=== PATIENT | female | born 1985 | race Asian ===

== ENCOUNTER → 2020-09-20 15:41 | Outpatient (BNVA) | payer OTHER, SELFPAY | PROVIDERS: PCP Dermatology; Visit Provider Obstetrics & Gynecology | DX: N87.0 Mild cervical dysplasia (principal) | CPT/HCPCS: 88175 ==

== ENCOUNTER 2021-04-07 13:39 | Emergency (ER) | payer OTHER, SELFPAY ==
[2021-04-07 14:14] VITALS: BP 97/63; PULSE 69; RESP 18; TEMP 36.8; O2SAT 98; BMI 16.5
[2021-04-07 14:30] VITALS: BP 97/63; PULSE 69; RESP 14
--- NOTE | 2021-04-07 14:30 | W.ED.HA ---
HPI - Headache General: Chief Complaint: Headache Stated Complaint: H/A, EYE PAIN Time Seen by Provider: 04/07/21 14:23 History of Present Illness: HPI Narrative: Patient states that she gets a headache usually with her monthly cycle. She has had this headache for couple weeks light and sound are bothering her eyes and her head. 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 Has felt nauseous to deny any other problems. MD elicited complaint: headache Onset (ago): week(s) Onset description: gradually Location: frontal Severity: mild Quality & Timing: throbbing and squeezing Associated symptoms: Reports nausea and photophobia; Deny chest pain, fever(s), rash or vomiting Treatments prior to arrival: ibuprofen Review of Systems Narrative: Had to use a phone mask inspector to help with our translation of her language Const: Denies: fever(s), chills or body aches Eyes: Denies: change in vision or blurry vision ENMT: Denies: throat pain or nasal congestion Card: Denies: chest pain or dyspnea on exertion Resp: Denies: dyspnea, productive cough or non-productive cough GI: Reports: nausea; Denies: abdominal pain or vomiting Musc: Denies: extremity pain Skin/Breast: Denies: rash Neuro: Reports: headache(s) and other (Photophobia) Psych: Denies: anxiety or depression Lucien/Lymph: Denies: easy bruising PFSH ED PFSH: Medical History No pertinent past medical history Denies diabetes, asthma, hypertension, seizures, DVT/PE PCP: JANNET Mcdermott Surgical History S/P appendectomy Open procedure (right lower quadrant incision) done at age 17 in [place] Family History Denies family history of Colon cancer Ovarian cancer Diabetes Heart disease Hyperlipidemia Breast cancer Hypertension Uterine cancer Thyroid condition Stroke Physical Exam Const: COMMON NORMALS: no acute distress, average body habitus and patient oriented x3 HENMT: COMMON NORMALS: normocephalic HEAD & SCALP: normal to inspection and normocephalic FACE & SINUS: normal facial exam Eye: COMMON NORMALS: Equal, round and reactive pupils present and conjunctivae normal GENERAL EYE: appearance normal, both eyes and all related structures CONJUNCTIVA: Yes conjunctivae normal PUPIL: Yes Equal, round and reactive pupils present DIRECT OPHTHALMOSCOPY: Yes photophobia Neck/C-Spine: COMMON NORMALS: no JVD Chest: COMMONS NORMALS: normal inspection of the chest Resp: COMMON NORMALS: normal respiratory effort and clear to auscultation bilaterally AUSCULTATION: clear to auscultation bilaterally Cardio: COMMON NORMALS: no JVD, regular rate and regular rhythm RATE: regular rate RHYTHM: regular rhythm GI: COMMON NORMALS: Normal to inspection, nondistended, normoactive bowel sounds present Extremity: COMMON NORMALS: normal to inspection and full ROM Neuro: COMMON NORMALS: patient oriented x3, moves all extremities and no focal motor deficits Psych: COMMON NORMALS: mental status grossly normal Course Vital Signs: Vital signs: Vital Signs Temperature 98.2 F 04/07/21 14:14 Pulse Rate 69 04/07/21 14:30 Respiratory Rate 14 04/07/21 14:30 Blood Pressure 97/63 04/07/21 14:30 Pulse Oximetry 98 04/07/21 14:14 MDM - Headache MDM Narrative: Medical decision making narrative: Patient responded well to Imitrex. Patient possibly has tension headaches are migraine. Patient is follow-up primary care provider. Discharge Plan Discharge Patient Disposition: Home Clinical Impression: Migraine Qualifiers: Migraine type: without aura Status migrainosus presence: without status migrainosus Intractability: intractable Qualified Code(s): G43.019 - Migraine without aura, intractable, without status migrainosus Condition: Stable Prescriptions: New Fioricet 50-300-40 mg capsule 1 cap PO TID PRN (Reason: pain) Qty: 14 RF: 0 No Action No Known Home Medications RF: 0 Discharge Orders: Discharge ED (Routine); Ordered 04/07/21 Ordered By: Tad Iverson Discharge Diet: Usual diet Discharge Activity: Resume usual activity Patient Instructions: Headache - Migraine (Adult), Tension Headache (ED) Activity Restrictions/Additional Instructions: Follow-up with medical provider as directed. Take medications as prescribed. Return to the ER or your medical provider if condition worsens. Please read and understand discharge instructions. If any questions ask please. Take [id number] naproxen as directed on the label state 3 days prior to the onset of your menstrual cycle and continue with that through your menstrual cycle.. Coding Level of Care Code ED Capsule Filler for [place] Fwd Exam Comprehensive
[2021-04-07] MEDS: SUMAtriptan 6 mg/0.5 mL SDV SUBCUT (14:36)
[2021-04-07] MEDS: ondansetron 4 MG Tablet 8 MG PO (14:37)
== END 2021-04-07 15:32 | disposition home or self-care (01) ==
PROVIDERS: Emergency Provider Nurse Practitioner Family
DX: G43.019 Migraine without aura, intractable, without status migrainosus (principal)
CPT/HCPCS: 96372; 99283; J3030; Q0162

== ENCOUNTER 2021-06-21 20:07 | Emergency (ER) | payer OTHER, SELFPAY ==
[2021-06-21 20:12] VITALS: BP 105/70; PULSE 74; RESP 18; TEMP 36.4; O2SAT 98; BMI 16.8
--- NOTE | 2021-06-21 20:26 | XRR_ITS ---
PROCEDURE INFORMATION: Exam: XR Chest Exam date and time: 06/21/2021 8:26 PM Age: 35 years old Clinical indication: Cough TECHNIQUE: Imaging protocol: XR of the chest. Views: 1 view. COMPARISON: CT abdomen pelvis w con* [id number] 07/22/2019 9:47 AM FINDINGS: Lungs: Unremarkable. No consolidation. Pleural spaces: Unremarkable. No pleural effusion. No pneumothorax. Heart/Mediastinum: Unremarkable. No cardiomegaly. Bones/joints: Mild rightward thoracic curvature. XR/XR chest 1V portable [id number] IMPRESSION: No acute finding. Radiation Dose CTDIVOL = (mGy): DLP = (mGy-cm)
[2021-06-21 20:30] VITALS: O2SAT 98
--- NOTE | 2021-06-21 20:41 | W.ED.COVID ---
HPI - COVID General: Chief Complaint: COVID symptoms Stated Complaint: Throat hurts\Chest Hurts\Congestion Time Seen by Provider: 06/21/21 20:11 Source: patient Mode of arrival: ambulatory Limitations: no limitations Triage information: Has fever, cough or shortness of breath. No known COVID + exposure last 14 days History of Present Illness: HPI Narrative: 35-year-old female states that over the last 2 to 3 days she had cough congestion burning in her chest and a sore throat. States cough is dry in nature she denies any vomiting or diarrhea. 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 She is afebrile here she is not requiring any oxygen. COVID 19 common symptoms: positive chills, non-productive cough and nasal congestion; negative headache(s), nausea, vomiting or diarrhea COVID 19 other sytmptoms: negative chest pain COVID Results: SARS-CoV-2 Antigen (Rapid) Positive (Negative) H 06/21/21 20:30 06/21/21 Review of Systems Const: Reports: chills Eyes: Denies: blurry vision or eye discomfort ENMT: Reports: nasal congestion Card: Denies: chest pain Resp: Reports: non-productive cough GI: Denies: abdominal pain, nausea, vomiting or diarrhea : Denies: dysuria Musc: Denies: neck pain or back pain Skin/Breast: Denies: rash Neuro: Denies: headache(s) Psych: Denies: depression Lucien/Lymph: Denies: easy bruising All/Imm: Denies: urticaria PFSH ED PFSH: Medical History No pertinent past medical history Denies diabetes, asthma, hypertension, seizures, DVT/PE PCP: JANNET Mcdermott Surgical History S/P appendectomy Open procedure (right lower quadrant incision) done at age 17 in [place] Family History Denies family history of Colon cancer Ovarian cancer Diabetes Heart disease Hyperlipidemia Breast cancer Hypertension Uterine cancer Thyroid condition Stroke Physical Exam Const: COMMON NORMALS: no acute distress, patient oriented x3 and healthy appearing HENMT: COMMON NORMALS: normocephalic and atraumatic HEAD & SCALP: normocephalic and atraumatic Eye: COMMON NORMALS: Equal, round and reactive pupils present and EOMs intact bilaterally PUPIL: Yes Equal, round and reactive pupils present Neck/C-Spine: COMMON NORMALS: full ROM and supple Chest: COMMONS NORMALS: normal inspection of the chest and normal palpation of entire chest wall Resp: COMMON NORMALS: normal respiratory effort, No retractions, No use of accessory muscles and clear to auscultation bilaterally AUSCULTATION: clear to auscultation bilaterally Cardio: COMMON NORMALS: regular rate, regular rhythm and No murmurs present (Cardio) RATE: regular rate RHYTHM: regular rhythm GI: COMMON NORMALS: Normal to inspection, nondistended, normoactive bowel sounds present, Soft to palpation, non-tender and no masses PALPATION: Yes Soft to palpation Extremity: COMMON NORMALS: normal to inspection and full ROM Neuro: COMMON NORMALS: patient oriented x3, moves all extremities and no focal motor deficits Psych: COMMON NORMALS: mental status grossly normal, Normal thought process present and cooperative THOUGHT PROCESS: Normal thought process present Skin: COMMON NORMALS: no rashes or lesions noted and no wounds GENERAL SKIN EXAM: no rashes or lesions noted Course Vital Signs: Vital signs: Vital Signs Temperature 97.5 F L 06/21/21 20:12 Pulse Rate 74 06/21/21 20:12 Respiratory Rate 18 06/21/21 20:12 Blood Pressure 105/70 06/21/21 20:12 Pulse Oximetry 98 06/21/21 20:30 MDM - COVID MDM Narrative: Medical decision making narrative: Patient presents here with Covid she is well-appearing here she is healthy she has no signs of serious infection she is on day 3 of symptoms I informed her she needs to quarantine for 7 more days. Patient is stable for discharge to return if worsening. Lab Data: Labs: Lab Results 06/21/21 06/21/21 20:30 20:30 SARS-CoV-2 Ag (Rap id) Positive H (Negative) Group A Strep Rapi d Negative (Negative) Imaging Data: CXR: Attestation: I personally reviewed and interpreted this imaging study as follows: My impression: no acute abnormality COVID Results: SARS-CoV-2 Antigen (Rapid) Positive (Negative) H 06/21/21 20:30 06/21/21 Discharge Plan Discharge Patient Disposition: Home Clinical Impression: COVID-19 Condition: Stable Prescriptions: New albuterol sulfate 90 mcg/actuation HFA aerosol inhaler 2 inh INHALATION Q6H PRN (Reason: shortness of breath or wheezing) Qty: 8 RF: 0 No Action Fioricet 50-300-40 mg capsule 1 cap PO TID PRN (Reason: pain) Qty: 14 RF: 0 Discharge Orders: Discharge ED (Routine); Ordered 06/21/21 Ordered By: Lucho Roberson Discharge Diet: Advance as tolerated Discharge Activity: Resume usual activity Patient Instructions: How to Recover from COVID-19 at Home (ED), Social Distancing Guidelines for COVID-19 (ED) Coding Level of Care Code ED Administrator Pesticide for [place] Fwd Exam Comprehensive
[2021-06-21 20:50] LABS: Rapid Strep A Test Negative (Negative)
[2021-06-21 21:02] LABS: SARS Covid-2 Antigen Positive (Negative)
[2021-06-21] MEDS: albuterol 8 gm MDI 2 PUFF INHALATION (21:45)
== END 2021-06-21 21:53 | disposition home or self-care (01) ==
PROVIDERS: Emergency Provider Emergency Medicine
DX: U07.1 COVID-19 (principal)
CPT/HCPCS: 71045; 87081; 87426; 87880; 94640; 99283; J3535

== ENCOUNTER 2021-08-17 14:04 | Emergency (ER) | payer SELFPAY ==
[2021-08-17 14:16] VITALS: BP 92/56; PULSE 82; RESP 16; TEMP 36.7; O2SAT 99; BMI 19.2
--- NOTE | 2021-08-17 17:36 | CTR_ITS ---
PROCEDURE INFORMATION: Exam: CT Lumbar Spine Without Contrast Exam date and time: 08/17/2021 5:36 PM Age: 35 years old Clinical indication: Low back pain; Patient HX: Lbp w ble radiculopathy w/o specific injury; Additional info: Lumbar radiculopathy TECHNIQUE: Imaging protocol: Computed tomography images of the lumbar spine without contrast. Radiation optimization: All CT scans at this facility use at least one of these dose optimization techniques: automated exposure control; mA and/or kV adjustment per patient size (includes targeted exams where dose is matched to clinical indication); or iterative reconstruction. COMPARISON: [facility] Lumbar Spine 2-3 views 03/17/2018 2:44 PM RADIATION DOSE METRICS: Total DLP (mGy-cm): 798.24 FINDINGS: Vertebrae: No acute fracture. Normal alignment. Discs/Spinal canal/Neural foramina: Disc protrusion at L4-L5 and L5-S1. No severe spinal canal stenosis. No significant neural foraminal narrowing. Soft tissues: Unremarkable. CT/CT lumbar spine wo con* [id number] IMPRESSION: No acute findings. Disc protrusion at L4-L5 and L5-S1.
--- NOTE | 2021-08-17 18:06 | ED_ITS ---
Documented by User: EDGARDO Mendoza 08/17/21 19:24 HPI - Back Pain/Injury General: Chief Complaint: Back Pain/Injury Stated Complaint: lower back pain Time Seen by Provider: 08/17/21 18:06 History of Present Illness: HPI Narrative: 35-year-old female comes in today with complaints of low back pain. Patient reports history of back pain in which she has used meloxicam with good relief. For the last 3 days patient's had wo rse back pain which is made it difficult for her to walk and ambulate. Patient continues to work but has significant discomfort. Patient denies any problems with urination or bowel movements. Location: lumbar spine Radiation: left upper leg and right upper leg Exacerbating factors: walking Relieving factors: supine Associated symptoms: Reports difficulty walking and tingling/numbness/burning; Deny change in bowel habits or fever(s) Review of Systems Const: Denies: fever(s) GI: Denies: change in bowel habits Musc: Reports: back pain Neuro: Reports: difficulty walking PFSH ED PFSH: Medical History No pertinent past medical history Denies diabetes, asthma, hypertension, seizures, DVT/PE PCP: JANNET Mcdermott Surgical History S/P appendectomy Open procedure (right lower quadrant incision) done at age 17 in [place] Family History Denies family history of Colon cancer Ovarian cancer Diabetes Heart disease Hyperlipidemia Breast cancer Hypertension Uterine cancer Thyroid condition Stroke Physical Exam Const: COMMON NORMALS: healthy appearing EXAM LIMITATIONS: language barrier (Mandrin is patient's primary language) NUTRITIONAL APPEARANCE: thin HENMT: COMMON NORMALS: normocephalic HEAD & SCALP: normocephalic Neck/C-Spine: COMMON NORMALS: full ROM Resp: COMMON NORMALS: normal respiratory effort and clear to auscultation bilaterally AUSCULTATION: clear to auscultation bilaterally Cardio: COMMON NORMALS: regular rate and regular rhythm RATE: regular rate RHYTHM: regular rhythm Course Vital Signs: Vital signs: Vital Signs Temperature 98.1 F 08/17/21 14:16 Pulse Rate 82 08/17/21 14:16 Respiratory Rate 16 01/21/22 19:10 Blood Pressure 92/56 08/17/21 14:16 Pulse Oximetry 99 08/17/21 14:16 MDM - Back Pain/Injury MDM Narrative: Medical decision making narrative: Patient comes in today with complaints of low back pain. Patient had 1 previous episode of similar pain about 2 years ago. Patient tried some meloxicam that she had had from that prescription with minimal to no relief. Patient reports increased difficulty of walking due to pain. Patient denied any bowel or bladder concerns. Patient denies any fever. On exam patient had tenderness in the lumbar L5-S1 area. Positive leg lift test on the right. Vital signs are normal. Differential diagnosis includes but not limited to lumbar radiculopathy, lumbar sprain, intervertebral disc disease, facet arthropathy. CT of the lumbar spine indicated some mild bulging disc at L4-L5, and L5-S1 without significant foraminal encroachment. Reviewed exam with patient with recommendations for treatment with medication and follow-up with primary care for physical therapy. Patient reports understanding of care plan and need for follow-up. Discharge Plan Discharge Patient Disposition: Home Clinical Impression: Lumbar radiculopathy Condition: Stable Prescriptions: New prednisone 20 mg tablet 20 mg PO BID 5 Days Qty: 10 RF: 0 diclofenac sodium 75 mg tablet,delayed release (DR/EC) 75 mg PO BID Qty: 14 RF: 0 hydrocodone-acetaminophen 5-325 mg tablet 1 tab PO Q8H PRN (Reason: pain (scale score 7-10)) Qty: 10 RF: 0 No Action Fioricet 50-300-40 mg capsule 1 cap PO TID PRN (Reason: pain) Qty: 14 RF: 0 albuterol sulfate 90 mcg/actuation HFA aerosol inhaler 2 inh INHALATION Q6H PRN (Reason: shortness of breath or wheezing) Qty: 8 RF: 0 Discharge Orders: Discharge ED (Routine); Ordered 08/17/21 Ordered By: Syed Jalloh Discharge Diet: Usual diet Discharge Activity: Increase activity as tolerated Patient Instructions: Lumbar Radiculopathy (ED), Opioid Safety Activity Restrictions/Additional Instructions: Maintain activity as much as possible. Drink plenty of water with medication. Stop meloxicam. Use diclofenac 75 mg twice a day for pain and inflammation. Use prednisone 20 mg daily for inflammation. Use hydrocodone and acetaminophen for further pain relief. Follow-up with primary care in 3 days for recheck. Return to ER for new concerns. Coding Level of Care Code ED Machine Overhauler for Chg Fwd Exam Detailed Documented by User: Kaerl Blas DO 08/17/21 19:25 HPI - Back Pain/Injury General: Chief Complaint: Back Pain/Injury Stated Complaint: lower back pain Time Seen by Provider: 08/17/21 18:06 [facility] ED PFSH: Medical History No pertinent past medical history Denies diabetes, asthma, hypertension, seizures, DVT/PE PCP: JANNET Mcdermott Surgical History S/P appendectomy Open procedure (right lower quadrant incision) done at age 17 in [place] Family History Denies family history of Colon cancer Ovarian cancer Diabetes Heart disease Hyperlipidemia Breast cancer Hypertension Uterine cancer Thyroid condition Stroke Course Vital Signs: Vital signs: Vital Signs Temperature 98.1 F 08/17/21 14:16 Pulse Rate 82 08/17/21 14:16 Respiratory Rate 16 08/17/21 19:10 Blood Pressure 92/56 08/17/21 14:16 Pulse Oximetry 99 08/17/21 14:16 MDM - Back Pain/Injury MDM Narrative: Medical decision making narrative: This patient was originally seen by EDGARDO Hernandez. I agree with his history, evaluation, and treatment. Discharge Plan Discharge Patient Disposition: Home Clinical Impression: Lumbar radiculopathy Condition: Stable Prescriptions: New prednisone 20 mg tablet 20 mg PO BID 5 Days Qty: 10 RF: 0 diclofenac sodium 75 mg tablet,delayed release (DR/EC) 75 mg PO BID Qty: 14 RF: 0 hydrocodone-acetaminophen 5-325 mg tablet 1 tab PO Q8H PRN (Reason: pain (scale score 7-10)) Qty: 10 RF: 0 No Action Fioricet 50-300-40 mg capsule 1 cap PO TID PRN (Reason: pain) Qty: 14 RF: 0 albuterol sulfate 90 mcg/actuation HFA aerosol inhaler 2 inh INHALATION Q6H PRN (Reason: shortness of breath or wheezing) Qty: 8 RF: 0 Discharge Orders: Discharge ED (Routine); Ordered 08/17/21 Ordered By: Syed Jalloh Discharge Diet: Usual diet Discharge Activity: Increase activity as tolerated Patient Instructions: Lumbar Radiculopathy (ED), Opioid Safety Activity Restrictions/Additional Instructions: Maintain activity as much as possible. Drink plenty of water with medication. Stop meloxicam. Use diclofenac 75 mg twice a day for pain and inflammation. Use prednisone 20 mg daily for inflammation. Use hydrocodone and acetaminophen for further pain relief. Follow-up with primary care in 3 days for recheck. Return to ER for new concerns. Coding Level of Care Code ED Machine Overhauler for [place] Fwd Exam Detailed
[2021-08-17] MEDS: ketorolac 30 mg/mL INJ IM (18:45)
[2021-08-17] MEDS: dexamethasone 10 mg/mL INJ IM (18:45)
[2021-08-17 19:10] VITALS: RESP 16
== END 2021-08-17 19:10 | disposition home or self-care (01) ==
PROVIDERS: Emergency Provider Nurse Practitioner Family
DX: M54.16 Radiculopathy, lumbar region (principal)
CPT/HCPCS: 72131; 96372; 99283; J1100; J1885

== ENCOUNTER → 2022-03-06 14:35 | Outpatient (BNVA) | payer OTHER, SELFPAY | PROVIDERS: Visit Provider Nurse Practitioner Women's Health | DX: Z01.419 Encounter for gynecological examination (general) (routine) without abnormal findings (principal); N87.0 Mild cervical dysplasia; N84.1 Polyp of cervix uteri; N63.0 Unspecified lump in unspecified breast; Z01.411 Encounter for gynecological examination (general) (routine) with abnormal findings | CPT/HCPCS: 87624; 88305 ==

== ENCOUNTER 2022-03-27 10:43 | Outpatient (CLI) | payer OTHER, SELFPAY ==
--- NOTE | 2022-03-27 10:51 | MM_ITS ---
WS: [id number] DIAGNOSTIC BILATERAL DIGITAL BREAST TOMOSYNTHESIS MAMMOGRAPHY WITH CAD Bilateral breast ultrasound, limited HISTORY: Palpable areas bilaterally. COMPARISON: 09/03/2018 TECHNIQUE: Bilateral craniocaudad, mediolateral oblique, and mediolateral views are submitted with to mosynthesis and SM. Spot compression bilateral CC views. Computer aided detection utilized. Breast composition: The breasts are extremely dense, which lowers the sensitivity of mammography. Tri angular markers are placed along the upper aspect of each breast. Bilateral palpable markers. Breasts are very dense. No suspicious mass or calcification. No distortion. Similar pattern to the pr ior examination. Bilateral breast ultrasound, limited. RIGHT breast: Very dense fibroglandular tissue in the RIGHT breast. There are several hypoechoic nodu les at 2:00. Ovoid hypoechoic nodule measures 1.1 x 0.5 x 1.3 cm at 2:00, 2 cm from the nipple. This is probably benign and may be a fibroadenoma. There are additional small complex cyst at 10:00, 3 cm from the nipple with the largest cluster measuring 0.6 x 0.7 x 0.5 cm. LEFT breast: Extremely dense fibroglandular density. No abnormality is noted at 2 or 10:00. MM/[place] [id number] IMPRESSION: BI-RADS: 3-Probably Benign FOLLOW UP: 6 Month Follow-up Recommend ultrasound follow-up RIGHT breast in 6 months. Favor these findings a re probably benign. Complex cyst and possible fibroadenoma. Ultrasound follow-u p recommended at 2:00 and 10:00.
== END 2022-03-27 10:44 | disposition home or self-care (01) ==
PROVIDERS: Visit Provider Nurse Practitioner Women's Health
DX: N63.11 Unspecified lump in the right breast, upper outer quadrant (principal); N63.21 Unspecified lump in the left breast, upper outer quadrant; N63.22 Unspecified lump in the left breast, upper inner quadrant
CPT/HCPCS: 76642; 77062

== ENCOUNTER 2022-09-17 08:16 | Outpatient (CLI) | payer OTHER, SELFPAY ==
--- NOTE | 2022-09-17 08:49 | US_ITS ---
WS: [id number] ULTRASOUND RIGHT BREAST, limited HISTORY: 6 month follow-up. COMPARISON: 03/27/2022 TECHNIQUE: 2-D and Doppler. Very dense fibroglandular breast tissue. Previously described hypoechoic nodule 2:00, 2 cm from nippl e measures 12 x 4 x 13 mm and is unchanged. Benign in appearance. There is a small complex cyst at 10 :00, 3 cm from the nipple measuring 4 x 6 x 6 mm which has slightly decreased in size. No increased v ascularity. Very dense fibroglandular tissue at 12:00. US/US breast RT complete [id number] IMPRESSION: BI-RADS: 3-Probably Benign FOLLOW-UP: 1 Year Follow-up Recommend limited RIGHT breast follow-up ultrasound in one year.
== END 2022-09-17 08:17 | disposition home or self-care (01) ==
PROVIDERS: PCP Surgery; Visit Provider Surgery
DX: N63.10 Unspecified lump in the right breast, unspecified quadrant (principal)
CPT/HCPCS: 76641

== ENCOUNTER 2022-10-28 08:13 | Outpatient (CLI) | payer OTHER, SELFPAY ==
--- NOTE | 2022-10-28 08:15 | US_ITS ---
WS: [id number] RIGHT UPPER QUADRANT ULTRASOUND HISTORY: abd pain COMPARISON: None available. Liver: 11.4 cm in length. Normal size liver and echogenicity. No bile duct dilatation or mass. Portal Vein: Normal hepatopetal flow with monophasic waveform. Gallbladder: Normally distended gallbladder with no stones or wall thickening. CBD: 0.3 cm Pancreas: Normal size and echogenicity. Right kidney: 9.4 cm in length. Normal size and echogenicity. No hydronephrosis or mass. Aorta and IVC: Unremarkable abdominal aorta and IVC. No ascites. US/US gall bladder [id number] IMPRESSION: Normal RIGHT upper quadrant ultrasound.
== END 2022-10-28 08:14 | disposition home or self-care (01) ==
LOC: RAD 08:15
PROVIDERS: PCP Internal Medicine; Visit Provider Surgery
DX: R10.9 Unspecified abdominal pain (principal)
CPT/HCPCS: 76705

== ENCOUNTER 2022-10-30 08:50 | Day surgery (SDC) | payer OTHER, SELFPAY ==
[2022-10-28 10:02] VITALS: BMI 17.4
[2022-10-30 09:20] VITALS: BP 103/60; PULSE 72; RESP 16; TEMP 36.3; O2SAT 99
[2022-10-30] MEDS: sodium chloride 0.9% 1,000 ML 30 ML IV (09:27)
--- NOTE | 2022-10-30 09:38 | ANES.PREANE2 ---
Pre-Anesthetic Assessment Height/Weight: Height 1.57 m Weight 43.091 kg Preop Diagnosis: GERD Operation Date: 10/30/22 10:15 Proposed Procedures p [id number] EGD R10.13(Not Applicable) - Octavio Beatty DO Familial anesthetic complications: none Was Beta Jaswant taken within 24 hours: N/A Was Clonidine taken within 24 hours: N/A Last intake: Intake Last Liquid Date 10/29/22 Last Liquid Time 20:00 Last Solid Date 10/29/22 Last Solid Time 20:00 Last Intake: 20:00 Social No alcohol and No tobacco Exam alert, oriented x 3, clear to auscultation bilaterally and regular rate & rhythm Airway Submandibular: within normal limits Cervical ROM: within normal limits Mallampati: Class II Dentition: full Pulmonary Asthma CV/HEM None reported None reported Hepatic None reported GI Gastroesophageal Reflux Disease Metabolic None reported Musc/skel Lower Back Pain Neuropsych None reported Anesthetic Plan ASA status: 2 Anesthesia: MAC Medications/Allergies Home Medications Medication Instructions Recorded Confirmed Last Taken Type albuterol sulfate 90 mcg/actuation 2 inh inhalation Q6H PRN shortness 06/21/21 10/30/22 Unknown Rx aerosol inhaler of breath or wheezing #8 grams pantoprazole 40 mg tablet,delayed 40 mg PO BID 6 weeks #84 tabs 09/26/22 10/30/22 Unknown Rx release (Protonix) Allergies Allergy/AdvReac Type Severity Reaction Status Date / Time No Known Allergies Allergy Unverified 10/30/22 09:27 Current Medications Generic Name Dose Route Start Last Admin Trade Name Freq PRN Reason Stop Dose Admin Sodium Chloride 1,000 mls @ 30 mls/hr 10/30/22 09:00 10/30/22 09:27 Sodium Chloride 0.9% IV 10/31/22 08:59 30 mls/hr .Q24H WALDEMAR Administration PFSH Anesthesia Medical History Cervical polyp (~02/2022) benign History of gestational hypertension (~2010) No pertinent past medical history Denies diabetes, asthma, hypertension, seizures, DVT/PE PCP: JANNET Mcdermott Surgical History S/P appendectomy Open procedure (right lower quadrant incision) done at age 17 in [place] Family History Denies family history of Colon cancer Ovarian cancer Diabetes Heart disease Hyperlipidemia Breast cancer Hypertension Uterine cancer Thyroid condition Stroke Social History Smoking and tobacco status: never smoked Data Anesthesia Cardiac Studies: No Data to Display
[2022-10-30 09:39] LABS: OR HCG Qualitative Urine Negative (Negative)
--- NOTE | 2022-10-30 11:02 | P.HP_ITS ---
Providers/Chief Complaint Primary Care Provider: Kaylen Cole MD Chief Complaint: R10.13 History of Present Illness Neena Montgomery is a 36 year old female here for EGD Medications/Allergies Home Medications Medication Instructions Recorded Confirmed Last Taken Type albuterol sulfate 90 mcg/actuation 2 inh inhalation Q6H PRN shortness 06/21/21 10/30/22 Unknown Rx aerosol inhaler of breath or wheezing #8 grams pantoprazole 40 mg tablet,delayed 40 mg PO BID 6 weeks #84 tabs 09/26/22 10/30/22 Unknown Rx release (Protonix) Allergies Allergy/AdvReac Type Severity Reaction Status Date / Time No Known Allergies Allergy Unverified 10/30/22 09:27 PFSH Acute PFSH: Medical History Cervical polyp (~02/2022) benign History of gestational hypertension (~2010) No pertinent past medical history Denies diabetes, asthma, hypertension, seizures, DVT/PE PCP: JANNET Mcdermott Surgical History S/P appendectomy Open procedure (right lower quadrant incision) done at age 17 in [place] Family History Denies family history of Colon cancer Ovarian cancer Diabetes Heart disease Hyperlipidemia Breast cancer Hypertension Uterine cancer Thyroid condition Stroke Social History Smoking and tobacco status: never smoked Vitals/I&O/Wt Last Vital Signs Temp 97.4 F L 10/30/22 09:20 Pulse 72 10/30/22 09:20 Resp 16 10/30/22 09:20 BP 103/60 10/30/22 09:20 Pulse Ox 99 10/30/22 09:20 O2 Del Method 10/30/22 09:20 A&P Assessment and plan (1) GERD (gastroesophageal reflux disease): Plan EGD Attestations Medical Necessity Statement*: Home Coding Level of Care Code Acute Code for Chg Fwd Diagnoses GERD (gastroesophageal reflux disease) K21.9
[2022-10-30 11:16] VITALS: BP 95/60; PULSE 65; RESP 18; TEMP 36.6; O2SAT 100
[2022-10-30 11:21] VITALS: BP 99/58; PULSE 62; RESP 18; O2SAT 100
[2022-10-30 11:31] VITALS: BP 100/67; PULSE 70; RESP 18; O2SAT 100
--- NOTE | 2022-10-30 13:15 | ANE.PACU2 ---
Inpatient post-anesthesia follow up: Airway intact: Yes Vital signs: Temperature 97.8 F Pulse Rate 70 Respiratory Rate 18 Blood Pressure 100/67 Pulse Oximetry 100 Oxygen Delivery Me thod Room Air Oxygen Flow Rate 2 Fraction of Inspir ed Oxygen Hydration adequate: Yes Nausea and vomiting: No Pain level: 1 Mental status: Baseline
== END 2022-10-30 12:05 | disposition home or self-care (01) ==
PROVIDERS: PCP Internal Medicine; Visit Provider Surgery
PROC: 0DJ08ZZ Inspection of Upper Intestinal Tract, Via Natural or Artificial Opening Endoscopic (ICD-10-PCS; CPT 43235; principal; 2022-10-30 10:15)
DX: R10.13 Epigastric pain (principal); K21.9 Gastro-esophageal reflux disease without esophagitis; K29.70 Gastritis, unspecified, without bleeding
CPT/HCPCS: 43239; 81025; 84703; 88305; J2704; J7030

== ENCOUNTER 2022-11-03 22:15 | Emergency (ER) | payer OTHER, SELFPAY ==
[2022-11-03 22:18] VITALS: BP 108/72; PULSE 67; RESP 16; TEMP 36.6; O2SAT 100
--- NOTE | 2022-11-03 22:32 | W.ED.GENADLT ---
HPI - General Adult General: Chief complaint: General Medical Stated complaint: chest pain Time Seen by Provider: 11/03/22 22:27 History of Present Illness: 36-year-old female comes in today with complaints of breast pain and discomfort. Patient reports that her present discomfort and changes in her breast are noted with her periods. Patient appears nontoxic. Patient appears no acute distress. Patient is alert and oriented. Associated symptoms: Deny dyspnea, nausea or vomiting Review of Systems General: Reports: 10 or more systems reviewed and unremarkable except in HPI and below Resp: Denies: dyspnea GI: Denies: nausea or vomiting Musc: Denies: neck pain Skin/Breast: Reports: breast mass Psych: Denies: anxiety PFSH ED PFSH: Medical History Cervical polyp (~02/2022) benign History of gestational hypertension (~2010) No pertinent past medical history Denies diabetes, asthma, hypertension, seizures, DVT/PE PCP: JANNET Mcdermott Surgical History S/P appendectomy Open procedure (right lower quadrant incision) done at age 17 in [place] Family History Denies family history of Colon cancer Ovarian cancer Diabetes Heart disease Hyperlipidemia Breast cancer Hypertension Uterine cancer Thyroid condition Stroke Social History Smoking and tobacco status: never smoked Physical Exam Const: COMMON NORMALS: alert HENMT: COMMON NORMALS: normocephalic HEAD & SCALP: normocephalic Neck/C-Spine: COMMON NORMALS: full ROM Chest: COMMONS NORMALS: normal palpation of the breasts (Dense breast tissue) BREAST/AXILLA PALPATION: Yes normal palpation of the axillae and Yes normal palpation of the breasts (Dense breast tissue) Resp: COMMON NORMALS: normal respiratory effort Cardio: COMMON NORMALS: regular rate RATE: regular rate Extremity: COMMON NORMALS: normal to inspection Neuro: SENSORIUM/ORIENTATION: Yes alert Skin: COMMON NORMALS: turgor normal GENERAL SKIN EXAM: turgor normal Course Vital Signs: Vital signs: Vital Signs Temperature 97.9 F 11/03/22 22:18 Pulse Rate 67 11/03/22 22:18 Respiratory Rate 16 11/03/22 22:18 Blood Pressure 108/72 11/03/22 22:18 Pulse Oximetry 100 11/03/22 22:18 Oxygen Delivery Me thod 11/03/22 22:18 MDM - General Adult Medical Decision Making 36-year-old female comes in today for complaints of tenderness to the right breast with pain in both breasts. Patient states that she noted the symptoms cycle with her period. On exam patient has some dense breast tissue on palpation but no nonmobile masses or dimpling of the skin. Differential diagnosis includes but not limited to fibrocystic breast changes, malingering, muscle strain. Strongly believe patient has fibrocystic breast changes due to her. Barrier to care is due to her [place]ian being a second language. Provided information about fibrocystic breast disease and simplified Syriac writing. Patient reported understanding of care plan and need for follow-up or return to the ER. Discharge Plan Discharge Patient Disposition: Home Clinical Impression: Fibrocystic breast disease (FCBD) in female Qualifiers: Laterality: unspecified laterality Qualified Code(s): N60.19 - Diffuse cystic mastopathy of unspecified breast Condition: Stable Prescriptions: New naproxen 500 mg tablet 500 mg PO BID PRN (Reason: breast pain) Qty: 30 0RF No Action pantoprazole [Protonix] 40 mg tablet,delayed release (DR/EC) 40 mg PO BID 42 Days Qty: 84 1RF albuterol sulfate 90 mcg/actuation HFA aerosol inhaler 2 inh INHALATION Q6H PRN (Reason: shortness of breath or wheezing) Qty: 8 0RF Discharge Orders: Discharge ED (Routine); Ordered 11/03/22 Ordered By: Syed Jalloh Referrals: Kaylen Cole MD [Primary Care Provider] - Patient Instructions: Fibrocystic Breast Changes (ED) Activity Restrictions/Additional Instructions: Follow-up with primary care as directed. Keep appointment in 2 weeks as scheduled. Return to ED for new concerns. Coding Level of Care Code ED [employer] for Carson Guo
[2022-11-03] MEDS: naproxen 500 mg Tablet PO (22:55)
== END 2022-11-03 23:42 | disposition home or self-care (01) ==
PROVIDERS: Emergency Provider Nurse Practitioner Family; PCP Internal Medicine
DX: N60.19 Diffuse cystic mastopathy of unspecified breast (principal)
CPT/HCPCS: 99283

== ENCOUNTER 2022-11-18 07:54 | Outpatient (CLI) | payer OTHER, SELFPAY ==
--- NOTE | 2022-11-18 08:00 | NM_ITS ---
WS: [id number] NUCLEAR MEDICINE HIDA SCAN CLINICAL INFORMATION: abd pain TECHNIQUE: Following intravenous administration of 8.1 mCi of technetium 99m mebrofenin, images of th e abdomen were obtained over the course of 60 minutes. Next, gallbladder ejection fraction was determ ined by obtaining preprandial and one-hour postprandial images of the gallbladder following oral carlos stion of Ensure. COMPARISON: Ultrasound October 28, 2022 FINDINGS: Normal hepatic uptake at 5 minutes. Normal gallbladder visualized by 10 minutes. No evidence of acute cholecystitis. Normal common bile duct and small bowel activity. Normal hepatic excretion. Gallbladder ejection fraction 51% within normal limits. No evidence of chronic cholecystitis. NM/NM hepatobiliary w phar* [id number] IMPRESSION: 1. No evidence of acute or chronic cholecystitis. 2. Gallbladder ejection fraction 51% within normal limits. 3. Normal common bile duct and small bowel activity.
== END 2022-11-18 07:55 | disposition home or self-care (01) ==
PROVIDERS: PCP Internal Medicine; Visit Provider Surgery
DX: R10.13 Epigastric pain (principal)
CPT/HCPCS: 78227; A9537

== ENCOUNTER 2022-12-06 05:49 | Day surgery (SDC) | payer OTHER, SELFPAY ==
[2022-12-04 13:00] VITALS: BMI 16.8
[2022-12-06 06:16] VITALS: BP 100/56; PULSE 79; RESP 16; TEMP 37.1; O2SAT 98
[2022-12-06] MEDS: sodium chloride 0.9% 1,000 ML 30 ML IV (06:21)
--- NOTE | 2022-12-06 07:02 | P.ANESASSM_ITS ---
Pre-Anesthetic Assessment Height/Weight: Height 1.57 m Weight 41.73 kg Temp Pulse Resp BP Pulse Ox O2 Del Method 98.8 F 79 16 100/56 98 Room Air 12/06/22 06:16 12/06/22 06:16 12/06/22 06:16 12/06/22 06:16 12/06/22 06:16 12/06/22 06:16 Operation Date: 12/06/22 07:00 Proposed Procedures p 01101 diagnostic colonoscopy R10.9 ,R19.7(Not Applicable) - Octavio Beatty DO Familial anesthetic complications: none Was Beta Jaswant taken within 24 hours: N/A Was Clonidine taken within 24 hours: N/A Last intake: Intake Last Liquid Date 12/05/22 Last Liquid Time 22:30 Last Solid Date 12/04/22 Last Solid Time 23:00 Last Intake: 20:00 Social No alcohol and No tobacco Exam alert and oriented x 3 Airway Submandibular: within normal limits Cervical ROM: within normal limits Mallampati: Class II Dentition: full History/ROS No significant history except as noted Pulmonary Asthma CV/HEM None reported None reported Hepatic None reported GI Gastroesophageal Reflux Disease Metabolic None reported Musc/skel None reported Neuropsych None reported Anesthetic Plan ASA status: 2 Risk of > 500 ml blood loss (7ml/kg in children): No Medications/Allergies Home Medications Medication Instructions Recorded Confirmed Last Taken Type albuterol sulfate 90 mcg/actuation 2 inh inhalation Q6H PRN shortness 06/21/21 12/06/22 12/04/22 Rx aerosol inhaler of breath or wheezing #8 grams dicyclomine 20 mg tablet 40 mg PO QID 3 months #720 tabs 11/28/22 12/06/22 12/04/22 Rx Allergies Allergy/AdvReac Type Severity Reaction Status Date / Time No Known Allergies Allergy Unverified 12/04/22 12:57 Current Medications Generic Name Dose Route Start Last Admin Trade Name Freq PRN Reason Stop Dose Admin Sodium Chloride 1,000 mls @ 30 mls/hr 12/06/22 06:00 12/06/22 06:21 Sodium Chloride 0.9% IV 12/07/22 05:59 30 mls/hr .Q24H WALDEMAR Administration PFSH Anesthesia Medical History Cervical polyp (~02/2022) benign History of gestational hypertension (~2010) No pertinent past medical history Denies diabetes, asthma, hypertension, seizures, DVT/PE PCP: JANNET Mcdermott Surgical History S/P appendectomy Open procedure (right lower quadrant incision) done at age 17 in [place] Family History Denies family history of Colon cancer Ovarian cancer Diabetes Heart disease Hyperlipidemia Breast cancer Hypertension Uterine cancer Thyroid condition Stroke Social History Smoking and tobacco status: never smoked Female Reproductive History Date of last menstrual period: 11/25/22 Data Anesthesia Cardiac Studies: No Data to Display
--- NOTE | 2022-12-06 07:04 | W.PM.OPSUD ---
Surgery/Procedure H&P Update DATE OF PROCEDURE: December 06, 2022 DATE H&P PERFORMED: 11/28/22 H&P UPDATE INFORMATION: I have reviewed H&P completed within last 30 days, I have examined patient prior to procedure and No changes to prior documentation PLANNED PROCEDURE: Operation Date: 12/06/22 07:00 Proposed Procedures p [id number] diagnostic colonoscopy R10.9 ,R19.7(Not Applicable) - Octavio Beatty, DO
[2022-12-06 07:28] VITALS: BP 94/69; PULSE 69; RESP 20; TEMP 36.2; O2SAT 100
[2022-12-06 07:43] VITALS: BP 108/74; PULSE 62; RESP 18; O2SAT 100
--- NOTE | 2022-12-06 07:58 | ANE.PACU2 ---
Inpatient post-anesthesia follow up: Airway intact: Yes Vital signs: Temperature 97.2 F Pulse Rate 62 Respiratory Rate 18 Blood Pressure 108/74 Pulse Oximetry 100 Oxygen Delivery Me thod Room Air Oxygen Flow Rate Fraction of Inspir ed Oxygen Hydration adequate: Yes Nausea and vomiting: No Pain level: 1 Mental status: Baseline
[2022-12-06 19:27] LABS: OR HCG Qualitative Urine Negative (Negative)
== END 2022-12-06 08:02 | disposition home or self-care (01) ==
PROVIDERS: Anesthesiology; PCP Internal Medicine; Visit Provider Surgery
PROC: 0DJD8ZZ Inspection of Lower Intestinal Tract, Via Natural or Artificial Opening Endoscopic (ICD-10-PCS; CPT 45378; principal; 2022-12-06 07:00)
DX: R10.9 Unspecified abdominal pain (principal); R19.7 Diarrhea, unspecified; J45.909 Unspecified asthma, uncomplicated; K21.9 Gastro-esophageal reflux disease without esophagitis
CPT/HCPCS: 45380; 82274; 83630; 84703; 87493; 87506; 88305; J2370; J2704; J7030

== ENCOUNTER 2024-07-22 11:23 | Outpatient (CLI) | payer OTHER, SELFPAY ==
--- NOTE | 2024-07-22 11:30 | MM_ITS ---
WS: [id number] BILATERAL 3D TOMOSYNTHESIS DIGITAL DIAGNOSTIC MAMMOGRAPHY WITH CAD CLINICAL INFORMATION: R92.8 - Other abnormal and inconclusive findings on diagn... HISTORY: RIGHT breast pain COMPARISON: 2021 and 2022 TECHNIQUE: Bilateral CC, MLO, and ML views. FINDINGS: The breasts are composed of extremely dense tissue, which can limit the detection of small underlying mass lesions. A few incidental punctate calcifications. Extremely dense breast tissue bilaterally si milar to previous. Ultrasound RIGHT breast is pending. ULTRASOUND BREAST RIGHT TECHNIQUE: Ultrasound right breast focused area of concern. CLINICAL INFORMATION: R92.8 - Other abnormal and inconclusive findings on diagn... COMPARISON: Ultrasound 03/27/2022 FINDINGS: Ultrasound RIGHT breast area of interest 11 to 1 o'clock position with normal underlying dense parenc hymal tissue. Tiny cyst measuring 7 mm at the 2 o'clock position. Additional small cyst at the 10 o'clock position 3 cm from the nipple. Small hypoechoic ovoid lesion may be complex cyst at the 12 o'clock position ap pears similar to prior lesions 2022 MM/MM diag BI tomosynthesis [id number] IMPRESSION: DENSITY: The breasts are extremely dense, which lowers the sensitivity of mammo graphy. BI-RADS: 2 - Benign FOLLOW UP: 1 Year Follow-up Recommend return to annual screening mammography.
--- NOTE | 2024-07-22 12:00 | US_ITS ---
WS: [id number] BILATERAL 3D TOMOSYNTHESIS DIGITAL DIAGNOSTIC MAMMOGRAPHY WITH CAD CLINICAL INFORMATION: R92.8 - Other abnormal and inconclusive findings on diagn... HISTORY: RIGHT breast pain COMPARISON: 2021 and 2022 TECHNIQUE: Bilateral CC, MLO, and ML views. FINDINGS: The breasts are composed of extremely dense tissue, which can limit the detection of small underlying mass lesions. A few incidental punctate calcifications. Extremely dense breast tissue bilaterally si milar to previous. Ultrasound RIGHT breast is pending. ULTRASOUND BREAST RIGHT TECHNIQUE: Ultrasound right breast focused area of concern. CLINICAL INFORMATION: R92.8 - Other abnormal and inconclusive findings on diagn... COMPARISON: Ultrasound 03/27/2022 FINDINGS: Ultrasound RIGHT breast area of interest 11 to 1 o'clock position with normal underlying dense parenc hymal tissue. Tiny cyst measuring 7 mm at the 2 o'clock position. Additional small cyst at the 10 o'clock position 3 cm from the nipple. Small hypoechoic ovoid lesion may be complex cyst at the 12 o'clock position ap pears similar to prior lesions 2022 US/US breast BI limited* [id number] IMPRESSION: DENSITY: The breasts are extremely dense, which lowers the sensitivity of mammo graphy. BI-RADS: 2 - Benign FOLLOW UP: 1 Year Follow-up Recommend return to annual screening mammography.
== END 2024-07-22 11:24 | disposition home or self-care (01) ==
LOC: RAD 11:24
PROVIDERS: PCP Internal Medicine; Visit Provider Nurse Practitioner Women's Health
DX: N60.11 Diffuse cystic mastopathy of right breast (principal); R92.1 Mammographic calcification found on diagnostic imaging of breast; R92.333 Mammographic heterogeneous density, bilateral breasts; R92.8 Other abnormal and inconclusive findings on diagnostic imaging of breast; N64.4 Mastodynia
CPT/HCPCS: 76642; 77062; G0279

== ENCOUNTER → 2024-08-19 09:26 | Outpatient (BNVA) | payer OTHER, SELFPAY | PROVIDERS: PCP Internal Medicine; Visit Provider Surgery | DX: R19.7 Diarrhea, unspecified (principal) | CPT/HCPCS: 36415; 86003; 86008 ==

== ENCOUNTER 2024-08-26 11:03 | Outpatient (CLI) | payer OTHER, SELFPAY | END 2024-08-26 11:04 | disposition home or self-care (01) | LOC: LAB 11:06 | PROVIDERS: PCP Internal Medicine; Visit Provider Surgery | DX: R10.9 Unspecified abdominal pain (principal); R19.7 Diarrhea, unspecified | CPT/HCPCS: 36415 ==

== ENCOUNTER 2025-07-04 16:03 | Outpatient (CLI) | payer OTHER, SELFPAY ==
--- NOTE | 2025-07-04 16:10 | CT_ITS ---
WS: [id number] CT PARANASAL SINUSES HISTORY: CHRONIC SINUS COMPLAINTS TECHNIQUE: Contiguous 2.5 mm axial images obtained through the sinuses. Images are reconstructed in sagittal and coronal planes. All CT scans at [facility] use at least one of these dose optimization techniques: automated exposure control; mA and/or kV adjustment per patient size (includes targeted exams where dose is matched to clinical indication); or iterative reconstruction. DLP: 324.75 mGy.cm COMPARISON: None available. Frontal sinuses: Nonpneumatized frontal sinuses. Sphenoid sinus: Clear. Ethmoid sinuses: Minimal mucoperiosteal thickening. Maxillary sinus: Minimal mucoperiosteal thickening. No air-fluid levels. Ostiomeatal unit: Patent. There is a small amount of mucoperiosteal thickening at the at the ostiomeatal complexes. No significant deviation of the nasal septum or spurring. Orbits and globes are negative. Visualized orbits and globes are negative. Osseous structures are normal. CT/CT sinus wo con* [id number] IMPRESSION: 1. No acute sinusitis or air-fluid levels. 2. Non pneumatization of the frontal sinuses. 3. Patent ostiomeatal units.
== END 2025-07-04 16:04 | disposition home or self-care (01) ==
LOC: RAD 16:03
PROVIDERS: PCP Internal Medicine; Visit Provider Physician Assistant
DX: R09.89 Other specified symptoms and signs involving the circulatory and respiratory systems (principal); J34.89 Other specified disorders of nose and nasal sinuses
CPT/HCPCS: 70486